=== PATIENT | female | born 1970 | race Caucasian/White ===

== ENCOUNTER 2022-07-27 06:36 | Day surgery (SDC) | payer OTHER ==
[~2022-07-27] VITALS: Ht 160 cm; Wt 72.6 kg
[2022-07-27] MEDS ORDERED: diphenhydrAMINE 50 MG/ML VIAL ONE (07:46)
[2022-07-27] MEDS ORDERED: LIDOCAINE 2% 100 MG/5 ML UJET TP ONE (07:46)
[2022-07-27] MEDS ORDERED: fentaNYL citrate 0.05 MG/ML VIAL ONE (07:46)
[2022-07-27] MEDS ORDERED: MIDAZOLAM 5 MG/5 ML VIAL ONE (07:46)
[2022-07-27] MEDS ORDERED: fentaNYL citrate 0.05 MG/ML VIAL IVP ONE (08:55)
[2022-07-27] MEDS ORDERED: MIDAZOLAM 5 MG/5 ML VIAL IV ONE (08:55)
== END 2022-07-27 10:29 | disposition home or self-care (01) ==
LOC: MDS 06:36 → MMU 06:37 → MDS 10:29
PROVIDERS: ATTEND Internal Medicine Gastroenterology
DX: Z12.11 Encounter for screening for malignant neoplasm of colon (principal); K21.9 Gastro-esophageal reflux disease without esophagitis; Z80.42 Family history of malignant neoplasm of prostate; Z80.8 Family history of malignant neoplasm of other organs or systems; Z90.710 Acquired absence of both cervix and uterus; Z79.899 Other long term (current) drug therapy; Z20.822 Contact with and (suspected) exposure to COVID-19
CPT/HCPCS: 45378; 87426; J2250; J3010; J1200